=== PATIENT | female | born 1990 | race Caucasian/White ===

== ENCOUNTER 2016-03-31 09:57 | Emergency (ER) | payer BC ==
[2016-03-31 10:15] VITALS: BP 108/65; PULSE 72; RESP 14; TEMP 98.8; O2SAT 98
[2016-03-31] MEDS ORDERED: IBUPROFEN 800 MG TAB PO ONE (11:02)
[2016-03-31] MEDS ORDERED: IBUPROFEN 600 MG TAB PO ONE (11:05)
[2016-03-31] MEDS ORDERED: IBUPROFEN 200 MG TAB PO ONE (11:05)
--- NOTE | 2016-03-31 11:11 | UCPHY ---
H & P Time Seen by Provider: 03/31/16 10:05 Patient Type: New HPI/ROS: HPI Redness and pain in toes. 25-year-old female by private vehicle. This patient reports that about 1 month ago for feet were exposed to prolonged wet and cold conditions while playing soccer. She reports that since then she has had redness and pain to all of her toes involving both feet. She reports that the redness and pain described as a burning sensation have been worsening over the last several weeks. She has a history of psoriatic arthritis as well. ROS: Constitutional: No fever, no chills. No weakness. Musculoskeletal: As above. No myalgias or arthralgias. Skin: As above. Neurological: No headache. No focal weakness or altered sensation. Past medical history: Raynaud's, psoriatic arthritis. Social history: Here by herself. Physical Exam: General Appearance: Alert, no distress. This patient is responding to questions appropriately and in full sentences. This patient appears well- hydrated and well-nourished. Eyes: Pupils equal and round no pallor or injection. No lid edema, erythema or injection. Foot exam: Examination of both feet reveals erythematous and diffusely swollen toes. There is no evidence of gangrenous tissue. Capillary refill is robust in all digits. Sensation is present in all digits. She has a strong dorsalis pedis pulse in both feet. There is no edema or erythema proximal to her toes. Her toes and feet are very cold to the touch. All of her toes flex and extend passively and actively without significant pain. Neurological: Motor sensory function is grossly intact. Cranial nerves are normal. Gait is normal. Skin: Warm and dry, as above. Extremities are symmetrical. All joints range without pain or impingement. Psychiatric: No agitation. No depression. Database: EKG: Imaging: Procedures: Emergency department course: After my evaluation of the patient differential diagnosis was discussed with her. I do not think that this is of exacerbation of her Raynaud's syndrome. She may have had a trench foot like injury to her digits and now has a neuropathy secondary to this. It is also possible that her discomfort and erythroderma are related to her psoriatic arthritis. Cellulitis is also possible but unlikely. I will treat her with 3 days of high-dose ibuprofen to see if she has improvement of her symptoms. I stressed that she keep her feet dry and warm. She will also be given a prescription for Keflex. Follow-up and return to Urgent Care/emergency department precautions were thoroughly reviewed with her. All of her questions were answered. She was discharged in good condition. Differential Diagnosis: The differential diagnosis on this patient includes but is not limited to erythroderma psoriasis, cold exposure injury, cellulitis, peripheral neuropathy. Raynaud's exacerbation, frostbite, tissue necrosis unlikely. This represents a partial list of diagnoses considered. These considerations are based on history, physical exam, past history, reassessment and diagnostic testing. Smoking Status: Never smoked Constitutional: Initial Vital Signs Temperature (C) 37.1 C 03/31/16 10:03 Heart Rate 72 03/31/16 10:03 Respiratory Rate 14 03/31/16 10:03 Blood Pressure 108/65 03/31/16 10:03 O2 Sat (%) 98 03/31/16 10:03 O2 Delivery Mode Room Air Allergies/Adverse Reactions: acetaminophen [From Tylenol] Allergy (Verified 03/31/16 10:03) Home Medications: Medication Instructions Recorded Cephalexin [Keflex (*)] 500 mg PO Q6 7 Days 03/31/16 MIRENA 03/31/16 MDM/Departure - Depart Disposition: Home, Routine, Self-Care Clinical Impression: Exposure to environmental cold, Neuropathy of toes Condition: Good Instructions: Peripheral Neuropathy (ED) Additional Instructions: Keep your feet warm and dry at all times. Follow-up with primary care physician Dr. Hinson or 1 of his partners or project engineering director Dr. Barraza in 2-3 days for re-evaluation. Ibuprofen dosin mg every 6 hours with meals for the next 3 days only. Take antibiotics as prescribed only if there is no improvement after 2-3 days of high-dose ibuprofen as above. Most important, return to the urgent care or emergency department for worsening pain, swelling, discoloration of your toes, loss of sensation or numbness in your toes or other serious concerns. Prescriptions: Cephalexin [Keflex (*)] 500 mg PO Q6 7 Days Referrals: Homer Hinson MD [Medical Doctor] - As per Instructions Madison Barraza [Doctor of Podiatric Medicine] - As per Instructions - PQRS PQRS Measurement: Not applicable.
== END 2016-03-31 11:32 | disposition home or self-care (01) ==
LOC: CED 09:57
DX: G62.9 Polyneuropathy, unspecified (principal); L40.50 Arthropathic psoriasis, unspecified; I73.00 Raynaud's syndrome without gangrene
CPT/HCPCS: 99203-PO; G0463-PO